=== PATIENT | female | born 1970 | race American Indian/Alaskan Native ===

== ENCOUNTER 2017-05-06 03:21 | Emergency (ER) | payer OTHER ==
[2017-05-06 04:22] LABS: Basophils % (Auto) 1.3 % (0.0-1.8); Eosinophils % (Auto) 4.2 % (0.0-4.3); Hematocrit 40.8 % (30.3-42.9); Hemoglobin 13.6 gm/dl (10.1-14.3); Mean Corpuscular HGB Conc 33 % (30-34); Mean Corpuscular Hemoglobin 27 pg (28-32); Mean Corpuscular Volume 82 fl (79-97); Platelet Count 273 K/mm3 (140-440); Red Cell Distribution Width 14.3 % (13.2-15.2); White Blood Count 9.4 K/mm3 (4.5-11.0)
[2017-05-06 04:23] LABS: Anion Gap 18 mmol/L; Blood Urea Nitrogen 9 mg/dL (7-17); Calcium 8.8 mg/dL (8.4-10.2); Carbon Dioxide 27 mmol/L (22-30); Chloride 97.3 mmol/L (98-107); Glucose 224 mg/dL (65-100); Sodium 138 mmol/L (137-145)
[2017-05-06] MEDS ORDERED: BABY ASPIRIN PO ONE (08:47)
--- NOTE | 2017-05-06 08:51 | Emergency Department Report ---
HPI - General Chief Complaint: Chest Pain Time Seen by Provider: 05/06/17 08:26 - HPI HPI: 46-year-old Afro-Mauritian female with a past medical history of diabetes and hypertension who presents to the emergency department with the complaint of left arm pain. The left arm pain has been going on intermittently over the past few weeks but recently has become more consistent and progressive. It is a dull pressure-like sensation throughout the left arm. She denies any chest pain but does have some associated shortness of breath. She also complains of some diaphoresis to the face. She is not taken anything for symptoms prior to presentation. She denies any history of NC, CVA, PE/DVT. She has a primary care physician but has not seen them regarding her symptoms. She denies any tobacco use or any illicit drug use or abuse. ED Review of Systems ROS: Stated complaint: L ARM PAIN Other details as noted in HPI Comment: All other systems reviewed and negative Constitutional: diaphoresis. denies: chills, fever Eyes: denies: eye pain, eye discharge, vision change ENT: denies: ear pain, throat pain Respiratory: shortness of breath. denies: cough Cardiovascular: denies: chest pain, palpitations Gastrointestinal: denies: abdominal pain, nausea, diarrhea Genitourinary: denies: urgency, dysuria, discharge Musculoskeletal: arthralgia, myalgia. denies: back pain, joint swelling Skin: denies: rash, lesions Neurological: denies: headache, weakness, paresthesias Physical Exam - Physical Exam Vital Signs: Vital Signs 05/06/17 03:34 Temperature 97.8 F Pulse Rate 65 Respiratory 18 Rate Blood Pressure 174/86 O2 Sat by Pulse 97 Oximetry Physical Exam: GENERAL: The patient is well-developed well-nourished. HEENT: Normocephalic. Atraumatic. Extraocular motions are intact. Patient has moist mucous membranes. Pupils equal reactive to light bilaterally. NECK: Supple. Trachea is midline. CHEST/LUNGS: Clear to auscultation. There is no respiratory distress noted. HEART/CARDIOVASCULAR: Regular. There is no tachycardia. There is no gallop rub or murmur. ABDOMEN: Abdomen is soft, nontender. Patient has normal bowel sounds. There is no abdominal distention. Obese habitus. SKIN: Skin is warm and dry. NEURO: The patient is awake, alert, and oriented. The patient is cooperative. The patient has no focal neurologic deficits. The patient has normal speech. MUSCULOSKELETAL: There is no tenderness or deformity. There is no limitation range of motion. There is no evidence of acute injury. Muscle strength 5 out of 5 upper and lower extremities bilaterally. Cap refill less than 2 seconds. Radial pulse +2 over 4 bilaterally. ED Course Vital Signs 05/06/17 03:34 Temperature 97.8 F Pulse Rate 65 Respiratory 18 Rate Blood Pressure 174/86 O2 Sat by Pulse 97 Oximetry ED Medical Decision Making - Lab Data Result diagrams: 05/06/17 03:47 05/06/17 03:47 - EKG Data -: EKG Interpreted by Me EKG shows normal: sinus rhythm, axis, intervals, QRS complexes, ST-T waves (T- wave inversions to the lateral leads of 1 and aVL) Rate: normal - EKG Data When compared to previous EKG there are: previous EKG unavailable Interpretation: other (T-wave inversions to the lateral leads 1 and aVL) Repeat EKG done at 10:14 AM is unchanged from previous 05/06/17 10:44 - Radiology Data Radiology results: image reviewed interpreted by me: Chest x-ray did not show any acute process. Heart is normal shape and size. No effusions. No pneumothorax. No signs of pneumonia seen. - Medical Decision Making 46-year-old female presents to the emergency department with intermittent left arm pain is been going on over the past few weeks as well as some intermittent shortness of breath. She has no chest pain. EKG shows T-wave inversions to leads 1 and aVL but no ST elevation, depression, significant dysrhythmia. Labs are unremarkable other than some mild hyperglycemia but the patient does not have any signs of DKA or HHNK. Troponins negative 3 and there was a negative d -dimer. Patient was reevaluated multiple times and normal hours and is feeling improved. She has a BRITT score of 0 as she does not have any confirmed angina chest pain, only in the mid to distal left arm. She is low on the heart score. She appears safe for discharge home at this point for follow-up with cardiology for possible outpatient stress test. She will return to the ER with any development of chest pain, shortness of breath, worsening of her conditions or any acute distress. - Differential Diagnosis NC, PE, muscle spasm, neuropathy Critical Care Time: No Critical care attestation.: If time is entered above; I have spent that time in minutes in the direct care of this critically ill patient, excluding procedure time. ED Disposition Clinical Impression: Left arm pain Hypertension Qualifiers: Hypertension type: essential hypertension Qualified Code(s): I10 - Essential ( primary) hypertension Diabetes Qualifiers: Diabetes mellitus type: type 2 Diabetes mellitus complication status: with hyperglycemia Diabetes mellitus long term care phlebotomist insulin use: with prison use Qualified Code(s): E11.65 - Type 2 diabetes mellitus with hyperglycemia Disposition: TO HOME OR SELFCARE Is pt being admited?: No Condition: Stable Instructions: Diabetes Mellitus Type 2 in Adults (ED), Hypertension (ED) Additional Instructions: Please follow-up with your primary care doctor in the next few days. I've given your referral for a local floor renovator, Dr. Gifford, to follow up regarding your left arm pain and for a possible outpatient stress test. Return to the emergency department with any chest pain, shortness of breath, worsening of her symptoms, or any acute distress. Referrals: JACQUELINE ORDAZ MD [Primary Care Provider] - 3-5 Days JEROD GIFFORD MD [Staff Physician] - 3-5 Days Time of Disposition: 10:32
[2017-05-06 08:57] VITALS: BP 149/76
--- NOTE | 2017-05-06 09:21 | XRay Report ---
CHEST 2 VIEWS INDICATION: Shortness of breath. COMPARISON: None similar at this institution. FINDINGS: PA and lateral chest radiographs demonstrate normal cardiomediastinal silhouette. Clear lungs. Thoracic spondylosis. EKG lead. CONCLUSION: No acute disease in the chest. Thank you for the opportunity to participate in this patient's care.
== END 2017-05-06 10:50 | disposition home or self-care (01) ==
LOC: ED 03:21
DX: I10 Essential (primary) hypertension (principal); E11.9 Type 2 diabetes mellitus without complications; M79.602 Pain in left arm
CPT/HCPCS: 36415; 71020; 80048; 84484; 85025; 85379; 93005; 93010; 99285

== ENCOUNTER 2020-08-24 15:58 | Emergency (ER) | payer SELFPAY ==
[2020-08-24 16:06] VITALS: BP 136/84
--- NOTE | 2020-08-24 17:55 | Event Note ---
ED Screening Note Date of service: 08/24/20 Time: 17:49 ED Screening Note: 50 y o f presents with cp with radiation to right arm DM This initial assessment/diagnostic orders/clinical plan/treatment(s) is/are subject to change based on patients health status, clinical progression and re-assessment by fellow clinical providers in the ED. Further treatment and workup at subsequent clinical providers discretion. Patient/guardian urged not to elope from the ED as their condition may be serious if not clinically assessed and managed. Initial orders include: labs, ekg, cxr
[2020-08-24 18:16] LABS: Basophils # (Auto) 0.1 K/mm3 (0.0-0.1); Basophils % (Auto) 0.9 % (0.0-1.8); Eosinophils # (Auto) 0.3 K/mm3 (0.0-0.4); Eosinophils % (Auto) 2.5 % (0.0-4.3); Hematocrit 39.8 % (30.3-42.9); Hemoglobin 13.9 gm/dl (10.1-14.3); Lymphocytes # (Auto) 3.9 K/mm3 (1.2-5.4); Lymphocytes % (Auto) 35.2 % (13.4-35.0); Mean Corpuscular HGB Conc 35 % (30-34); Mean Corpuscular Volume 80 fl (79-97); Monocytes # (Auto) 0.8 K/mm3 (0.0-0.8); Monocytes % (Auto) 6.8 % (0.0-7.3); Platelet Count 372 K/mm3 (140-440); Red Blood Count 4.96 M/mm3 (3.65-5.03); Red Cell Distribution Width 13.3 % (13.2-15.2)
--- NOTE | 2020-08-24 18:22 | XRay Report ---
CHEST 2 VIEWS INDICATION / CLINICAL INFORMATION: pain. COMPARISON: 05/06/2017 FINDINGS: SUPPORT DEVICES: None. HEART / MEDIASTINUM: No significant abnormality. LUNGS / PLEURA: No significant pulmonary or pleural abnormality. No pneumothorax. ADDITIONAL FINDINGS: No significant additional findings. IMPRESSION: 1. No acute findings. Signer Name: Joseph Buchanan MD Signed: 08/24/2020 6:18 PM Workstation Name: [id number]
[2020-08-24 18:43] LABS: BUN/Creatinine Ratio 20; Blood Urea Nitrogen 20 mg/dL (7-17); Calcium 9.7 mg/dL (8.4-10.2); Hemolysis Index 13
[2020-08-24] MEDS ORDERED: HYDROcodone/ACETAMINOPHEN 5-325 MG TAB PO STA (21:56)
--- NOTE | 2020-08-24 22:14 | Emergency Department Report ---
Upper Extremity - HPI Chief Complaint: Extremity Injury, Upper Stated Complaint: RT ARM SWEATS/PAIN Time Seen by Provider: 08/24/20 21:09 Upper Extremity: Right Shoulder Mechanism: Hit with Object Severity: moderate Symptoms: Yes Pain with Movement, Yes Limited Range of Movement, No Deformity, No Numbness, No Weakness, No Swelling, No Bruising/Ecchymosis, No Laceration or Abrasion Other History: 50-year-old F Jamaican female to the emergency department complaining of pain to the right shoulder for the last few days which began after she was walking downstairs lost her balance and hit the corner of a wall resulting in throbbing pain. Reports no fevers, chills, sweats no chest pain palpitation no nausea vomiting. The pain is continued tingling in the arm she felt some tingling sensation that she went on to go over and discovering the tingling to the right forearm could mean that she was having a hard texture she became worried and came to the emergency department for further evaluation and treatment. She reports a history of diabetes and hypertension which mildly controlled for reasons that she is that she states are unknown. She is due to follow-up with her primary care provider to adjust medications she reports no shortness of breath no hemoptysis no hematemesis no hematochezia ED Review of Systems ROS: Stated complaint: RT ARM SWEATS/PAIN Other details as noted in HPI Comment: All other systems reviewed and negative ED Past Medical Hx - Past Medical History Previous Medical History?: Yes Hx Hypertension: Yes Hx Diabetes: Yes - Surgical History Additional Surgical History: hysterectomy, lap band - Social History Smoking Status: Never Smoker Substance Use Type: None - Medications Home Medications: Home Medications Medication Instructions Recorded Confirmed Last Taken Type Ketorolac [Toradol] 10 mg PO Q6H PRN #10 tablet 08/24/20 Unknown Rx Upper Extremity Exam - Exam General: Vital signs noted. No distress. Alert and acting appropriately. Head and Torso: No HEENT Abnormality, No Neck Tenderness, No Chest/Lungs Abnormality, No Abdominal Tenderness, No Back Tenderness Shoulder Exam: Yes Shoulder Tenderness, Yes AC Joint Tenderness (Pain with Masterson and Manito's test), No Clavicle Tenderness, No Normal Range of Motion in Shoulder, No Shoulder Deformity Arm Exam: No Arm/Humerus Tenderness, No Arm Deformity Elbow: No Elbow Tenderness, No Normal Range of Motion in Elbow, No Elbow Deformity Forearm: No Forearm Tenderness, No Forearm Deformity, No Pain with Pronation, No Pain with Supination Wrist: Yes Normal ROM in Wrist, No Wrist Tenderness, No Wrist Deformity, No Snuffbox Tenderness, No Pain with Axial Thumb Compression Hand: Yes Normal ROM in Digit(s), No Hand Tenderness, No Hand Deformity, No Digit Tenderness, No Digit(s) Deformity, No Tendon Dysfunction CMS Exam: No Broken Skin, No Normal Distal Pulses, No Normal Capillary Refill, No Normal Distal Sensation ED Course Vital Signs 08/24/20 16:05 Temperature 98.2 F Pulse Rate 108 H Respiratory 20 Rate Blood Pressure 136/84 O2 Sat by Pulse 97 Oximetry ED Medical Decision Making - Lab Data Result diagrams: 08/24/20 17:48 08/24/20 17:50 - EKG Data EKG shows normal: sinus rhythm Rate: tachycardia - EKG Data When compared to previous EKG there are: no significant change Interpretation: no acute changes - Radiology Data Radiology results: report reviewed [facility] [address] [place] [address] XRay Report Signed Patient: KIMBER LE MR#: [id number] : 1970 Acct:[id number] Age/Sex: 50 / F ADM Date: 08/24/20 Loc: ED Attending Dr: Ordering Physician: POONAM STARK Date of Service: 08/24/20 Procedure(s): XR shoulder 2+V RT Accession Number(s): [id number] cc: POONAM STARK Fluoro Time In Minutes: RIGHT SHOULDER 3 VIEWS INDICATION / CLINICAL INFORMATION: Right shoulder pain and numbness for approximately one month. Cold sweats. COMPARISON: None available. FINDINGS: BONES / JOINT(S): There are moderate degenerative changes involving the acromioclavicular joint and there are mild degenerative changes involving the glenohumeral joint. There are also mild degenera tive changes involving the greater tuberosity of the humerus. There is no evidence of fracture, subluxation or destructive lesion. SOFT TISSUES: No significant abnormality. ADDITIONAL FINDINGS: The visualized right lung is clear. Signer Name: Joseph Pinzon MD Signed: 08/24/2020 10:30 PM Workstation Name: [id number] Transcribed By: RT Dictated By: Joseph Pinzon MD Electronically Authenticated By: Joseph Pinzon MD Signed Date/Time: 08/24/20 677 [facility] [address] [place] [address] XRay Report Signed Patient: KIMBER LE MR#: [id number] : 1970 Acct:[id number] Age/Sex: 50 / F ADM Date: 08/24/20 Loc: ED Attending Dr: Ordering Physician: POONAM SWANN Date of Service: 08/24/20 Procedure(s): XR chest routine 2V Accession Number(s): [id number] cc: POONAM SWANN Fluoro Time In Minutes: CHEST 2 VIEWS INDICATION / CLINICAL INFORMATION: pain. COMPARISON: 05/06/2017 FINDINGS: SUPPORT DEVICES: None. HEART / MEDIASTINUM: No significant abnormality. LUNGS / PLEURA: No significant pulmonary or pleural abnormality. No pneumothorax. ADDITIONAL FINDINGS: No significant additional findings. IMPRESSION: 1. No acute findings. Signer Name: Joseph Buchanan MD Signed: 08/24/2020 6:18 PM Workstation Name: [id number] Transcribed By: RH Dictated By: JOSEPH BUCHANAN III Electronically Authenticated By: JOSEPH BUCHANAN III Signed Date/Time: 08/24/201817 DD/ 16 TD/TT: Critical care attestation.: If time is entered above; I have spent that time in minutes in the direct care of this critically ill patient, excluding procedure time. ED Disposition Clinical Impression: Shoulder pain Disposition: DC-01 TO HOME OR SELFCARE Is pt being admited?: No Does the pt Need Aspirin: No Condition: Stable Instructions: Arthralgia (ED), Adhesive Capsulitis (ED), Shoulder Sprain (ED), Rotator Cuff Injury (ED), Shoulder Bursitis (ED) Prescriptions: Ketorolac [Toradol] 10 mg PO Q6H PRN #10 tablet PRN Reason: Pain Referrals: PRIMARY CARE, [Primary Care Provider] - 3-5 Days [facility] [Provider Group] - 3-5 Days
--- NOTE | 2020-08-24 22:34 | XRay Report ---
RIGHT SHOULDER 3 VIEWS INDICATION / CLINICAL INFORMATION: Right shoulder pain and numbness for approximately one month. Cold sweats. COMPARISON: None available. FINDINGS: BONES / JOINT(S): There are moderate degenerative changes involving the acromioclavicular joint and t here are mild degenerative changes involving the glenohumeral joint. There are also mild degenerative changes involving the greater tuberosity of the humerus. There is no evidence of fracture, subluxati on or destructive lesion. SOFT TISSUES: No significant abnormality. ADDITIONAL FINDINGS: The visualized right lung is clear. Signer Name: Joseph Pinzon MD Signed: 08/24/2020 10:30 PM Workstation Name: [id number]
== END 2020-08-25 02:20 | disposition home or self-care (01) ==
LOC: ED 15:58
DX: M25.511 Pain in right shoulder (principal); I10 Essential (primary) hypertension; E11.9 Type 2 diabetes mellitus without complications; Z79.899 Other long term (current) drug therapy; Z90.710 Acquired absence of both cervix and uterus
CPT/HCPCS: 36415; 71046; 80048; 84484; 85025; 93005